=== PATIENT | male | born 1950 | race Caucasian/White ===

== ENCOUNTER 2016-12-02 09:17 | Emergency (ER) | payer MEDICARE, OTHER ==
[2016-12-02 09:20] VITALS: BP 140/96; PULSE 97; RESP 18; TEMP 98.6; O2SAT 99; BMI 22.2
--- NOTE | 2016-12-02 09:40 | ED PDOC ---
Upper Extremity Pain/Injury Time Seen by Provider: 12/02/16 09:25 Chief Complaint (Nursing): Upper Extremity Problem/Injury Chief Complaint (Provider): Right shoulder pain History Per: Patient History/Exam Limitations: no limitations Onset/Duration Of Symptoms: Days (1) Current Symptoms Are (Timing): Still Present Quality: "Pain" Severity: Severe Pain Scale Rating Of: 10 Exacerbating Factor(s): Movement Additional Complaint(s): 66 year old smoker male with no significant medical history presents to ED due to right shoulder pain. Patient states last night, fell asleep on couch and fell onto coffee table with injury to right shoulder. Patient states pain was tolerable last night, though this morning had difficulty moving right shoulder due to increased pain. Patient denies palpitations, chest pain, sob, headache, dizziness, abdominal pain, lightheadedness, or LOC at time of event. No bruising , lacerations/active bleeding, or numbness/tingling. No pops noted. PMD: Dr. Ratliff Past Medical History Reviewed: Historical Data, Nursing Documentation, Vital Signs Vital Signs: Last Vital Signs Temp 98.6 F 12/02/16 09:18 Pulse 97 H 12/02/16 09:18 Resp 18 12/02/16 09:18 BP 140/96 H 12/02/16 09:18 Pulse Ox 99 12/02/16 09:18 - Family History Family History: States: No Known Family Hx - Home Medications Home Medications: Ambulatory Orders Medication Instructions Recorded Naproxen [Naprosyn] 500 mg PO BID PRN #14 tablet 12/02/16 - Allergies Allergies/Adverse Reactions: Allergies Allergy/AdvReac Type Severity Reaction Status Date / Time No Known Allergies Allergy Verified 12/02/16 09:34 Review of Systems ROS Statement: Except As Marked, All Systems Reviewed And Found Negative Musculoskeletal: Positive for: Shoulder Pain (right) Physical Exam - Reviewed Nursing Documentation Reviewed: Yes Vital Signs Reviewed: Yes - Physical Exam Appears: Positive for: Well, Non-toxic, No Acute Distress Head Exam: Positive for: ATRAUMATIC, NORMAL INSPECTION, NORMOCEPHALIC Skin: Positive for: Normal Color, Warm, Dry Eye Exam: Positive for: Normal appearance, EOMI Neck: Positive for: Normal, Painless ROM, Supple Cardiovascular/Chest: Positive for: Regular Rate, Rhythm Respiratory: Positive for: Normal Breath Sounds Gastrointestinal/Abdominal: Positive for: Normal Exam, Bowel Sounds (present), Soft. Negative for: Tenderness Back: Positive for: Normal Inspection Extremity: Positive for: Other (right shoulder with limited range of motion due to pain. No obvious skin/bony abnormalities. No contusions/abrasions noted. Neurovascular intact. Pain limited to shoulder and no radiation.) Neurologic/Psych: Positive for: Alert, wash operator II-XII, Oriented - ECG O2 Sat by Pulse Oximetry: 99 Pulse Ox Interpretation: Normal - Progress ED Course And Treament: Time: 9:45 Initial impression: 66 year old male without medical history with right shoulder pain x 1 day after fall onto coffee table. No other symptoms at this time. Plan: * Ibuprofen 600mg PO * Right Shoulder xray * Right Clavicle xray * CXR * Reeval Time: 1015 Xray reviewed, will obtain CT w/o contrast of Right shoulder for further evaluation. Time: 1045 PROCEDURE: Right upper extremity CT scan without contrast. HISTORY: R shoulder pain s/p fall COMPARISON: December 02, 2016. Plain film radiographs right upper extremity. TECHNIQUE: 1.25 mm axial acquisition and display. Coronal and sagittal reconstructions. Radiation dosimetry DLP (mGy-cm) 260.14 FINDINGS: Glenohumeral degenerative changes, mild. Mild acromioclavicular degenerative change. No appreciable narrowing in the region of the supraspinatus muscle/tendon. Anterior osteophyte formation about the humeral head. No evidence of clavicular fracture, rib fracture, scapular fracture. Incidental finding(s): Incompletely visualize thus characterize scarring and bullous changes in the apices. IMPRESSION: Glenohumeral and acromioclavicular degenerative change, mild. No acute osseous pathology. Additional benign and/or incidental findings described above. Discussed all imaging studies with patient. Improved symptoms with ibuprofen. Will discharge patient home with follow up with Dr. Marina (Orthopedic) and PMD this week for further work up including possibly MRI. Patient verbalized understanding of discharge instructions. Disposition - Clinical Impression Clinical Impression: Shoulder injury, Rotator cuff injury - Patient ED Disposition Is Patient to be Admitted: No Counseled Patient/Family Regarding: Studies Performed, Diagnosis, Need For Followup, Rx Given, Smoking Cessation - Disposition Referrals: Cary Marina MD [Staff Provider] - Disposition: Routine/Home Disposition Time: 10:50 Condition: STABLE Additional Instructions: See orthopedist for further testing and treatment of your injured shoulder. Take naprosyn 500mg 2x daily for pain with food. Return to ER for any worse or new symptoms. Prescriptions: Naproxen [Naprosyn] 500 mg PO BID PRN #14 tablet PRN Reason: Pain, Moderate (4-7) Instructions: Rotator Cuff Injury (ED), Shoulder Pain (ED) Print Language: YORUBA
--- NOTE | 2016-12-02 10:09 | RAD ---
HISTORY: fall R shoulder pain COMPARISON: 01/29/2013. TECHNIQUE: Chest PA and lateral FINDINGS: LUNGS: No active pulmonary disease. PLEURA: No significant pleural effusion identified. No pneumothorax apparent. CARDIOVASCULAR: Normal. OSSEOUS STRUCTURES: No significant abnormalities. VISUALIZED UPPER ABDOMEN: Normal. OTHER FINDINGS: None. IMPRESSION: No active disease. This No significant interval change compared to the prior examination(s).
--- NOTE | 2016-12-02 10:48 | CT ---
PROCEDURE: Right upper extremity CT scan without contrast. HISTORY: R shoulder pain s/p fall COMPARISON: December 02, 2016. Plain film radiographs right upper extremity. TECHNIQUE: 1.25 mm axial acquisition and display. Coronal and sagittal reconstructions. Radiation dosimetry DLP (mGy-cm) 260.14 FINDINGS: Glenohumeral degenerative changes, mild. Mild acromioclavicular degenerative change. No appreciable narrowing in the region of the supraspinatus muscle/tendon. Anterior osteophyte formation about the humeral head. No evidence of clavicular fracture, rib fracture, scapular fracture. Incidental finding(s): Incompletely visualize thus characterize scarring and bullous changes in the apices. IMPRESSION: Glenohumeral and acromioclavicular degenerative change, mild. No acute osseous pathology. Additional benign and/or incidental findings described above.
--- NOTE | 2016-12-02 11:01 | RAD ---
PROCEDURE: Radiographs of the Right Shoulder HISTORY: fall COMPARISON: No priors FINDINGS: BONES: No acute displaced fracture. The distal clavicle and underlying ribs appear intact. JOINTS: No acute dislocation. Mild glenohumeral joint space narrowing. Mild acromioclavicular arthropathy. SOFT TISSUES: Soft tissues appear unremarkable. No evidence of radiopaque foreign body. IMPRESSION: No acute displaced fracture or dislocation evident. If symptoms persist or if there is continued clinical concern, x-ray follow-up in 7-10 days should be considered.
--- NOTE | 2016-12-02 11:02 | RAD ---
PROCEDURE: Radiographs of the right clavicle. HISTORY: R shoulder pain COMPARISON: Right shoulder radiograph performed the same day. FINDINGS: RIGHT CLAVICLE: No acute displaced fracture identified. JOINTS: Right acromioclavicular and glenohumeral joints demonstrate mild joint space narrowing, otherwise grossly unremarkable. SOFT TISSUES: Grossly unremarkable. OTHER FINDINGS: 3 mm sclerotic focus within the right anterior 6th rib, possibly bone island. IMPRESSION: No acute fracture identified.
== END 2016-12-02 11:05 | disposition home or self-care (01) ==
LOC: H.ER 09:17
DX: M75.121 Complete rotator cuff tear or rupture of right shoulder, not specified as traumatic (principal); W06.XXXA Fall from bed, initial encounter; Y92.008 Other place in unspecified non-institutional (private) residence as the place of occurrence of the external cause

== ENCOUNTER 2017-10-14 09:14 | Emergency (ER) | payer MEDICARE ==
[2017-10-14 09:20] VITALS: BMI 20.1
[2017-10-14 09:21] VITALS: O2SAT 100
[2017-10-14 09:36] VITALS: BP 112/65; PULSE 90; RESP 16; TEMP 97.5
--- NOTE | 2017-10-14 10:20 | ED PDOC ---
Lower Extremity Pain/Injury Time Seen by Provider: 10/14/17 09:28 Chief Complaint (Nursing): Lower Extremity Problem/Injury Chief Complaint (Provider): Left leg pain History Per: Patient History/Exam Limitations: no limitations Onset/Duration Of Symptoms: Days (x1) Current Symptoms Are (Timing): Still Present Additional Complaint(s): Alex Yin is a 67 year old male, with no significant past medical history, who was brought to the emergency department via EMS complaining of left leg and foot pain onset since last night. 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 He denies any trauma, swelling or other medical complaints. PMD: None provided. Past Medical History Reviewed: Historical Data, Nursing Documentation, Vital Signs Vital Signs: Last Vital Signs Temp 97.5 F L 10/14/17 09:35 Pulse 90 10/14/17 09:35 Resp 16 10/14/17 09:35 BP 112/65 10/14/17 09:35 Pulse Ox 100 10/14/17 09:35 - Medical History PMH: No Chronic Diseases - Surgical History Surgical History: No Surg Hx - Family History Family History: States: Unknown Family Hx - Social History Current smoker - smoking cessation education provided: Yes (Heavy smoker >10 cigarettes daily) Alcohol: > 2 Drinks/Day Drugs: Denies - Home Medications Home Medications: Ambulatory Orders Medication Instructions Recorded Naproxen [Naprosyn] 500 mg PO BID PRN #14 tablet 12/02/16 - Allergies Allergies/Adverse Reactions: Allergies Allergy/AdvReac Type Severity Reaction Status Date / Time No Known Allergies Allergy Verified 12/02/16 09:34 Review of Systems ROS Statement: Except As Marked, All Systems Reviewed And Found Negative Musculoskeletal: Positive for: Leg Pain (left), Foot Pain (left) Physical Exam - Reviewed Nursing Documentation Reviewed: Yes Vital Signs Reviewed: Yes - Physical Exam Appears: Positive for: Well, Non-toxic, No Acute Distress Head Exam: Positive for: ATRAUMATIC, NORMAL INSPECTION, NORMOCEPHALIC Skin: Positive for: Normal Color, Warm, Dry Eye Exam: Positive for: Normal appearance, EOMI, PERRL Neck: Positive for: Painless ROM, Supple Cardiovascular/Chest: Positive for: Regular Rate, Rhythm. Negative for: Murmur Respiratory: Positive for: Normal Breath Sounds. Negative for: Respiratory Distress Extremity: Positive for: Normal ROM (lower extremities. ). Negative for: Tenderness, Deformity, Swelling Neurologic/Psych: Positive for: Alert, Oriented (x3). Negative for: Motor/ Sensory Deficits - Laboratory Results Result Diagrams: 10/14/17 09:08 10/14/17 09:08 - ECG O2 Sat by Pulse Oximetry: 100 (RA) Pulse Ox Interpretation: Normal Medical Decision Making Medical Decision Making: Initial Impression: Initial Plan: --Head w/o contrast [CT] --EKG --Alcohol serum --CMP --Drug screen, urine --Urine dipstick --CBC w/ differential --PTT --PT --Ankle left 3 views routine [RAD] --Foot left 3 views routine [RAD] --Tibia Fibula Left [RAD] --Urinalysis --Duplex Lower Extrm Vein Left [US] --Reevaluation -Contrary to triage patient does not feel depressed. He denies any suicidal or homicidal ideation and doesn't want to speak to crisis. 10:20 Tibia Fibula X-Ray FINDINGS: BONES: No fracture or destructive lesion. JOINT SPACES: Unremarkable. OTHER FINDINGS: Quadriceps insertional enthesophyte. Anterior tibial tuberosity cortical prominence -within normal variation. Atherosclerotic vascular calcifications present. IMPRESSION: No fracture or lytic lesion. Quadriceps insertional enthesophyte 10:24 Foot X-Ray FINDINGS: BONES: No fracture. Os peroneum JOINTS: First interphalangeal joint osteoarthrosis SOFT TISSUES: There are superficial innumerable densities present -some appear extrinsic to the soft tissue -overlying bandaging/cause. Soft tissue concomitant calcifications and/or ointment related minute/diffuse densities -not excluded - findings noted over the heel, plantar forefoot and dorsal midfoot OTHER FINDINGS: None. IMPRESSION: No fracture or lytic lesion. . . First interphalangeal joint osteoarthrosis Probable overlying bandaging/ gauze -correlate clinically. Findings referenced above 10:25 Ankle X-Ray FINDINGS: BONES: No fracture. Os peroneum JOINTS: Normal. No osteoarthritis. Ankle mortise maintained. Talar dome intact SOFT TISSUES: Probable overlying gauze OTHER FINDINGS: None. IMPRESSION: No fracture or dislocation. Incidental os peroneum Overlying gauze bandaging inferred 11:[address] FINDINGS: HEMORRHAGE: No intracranial hemorrhage. BRAIN: Good corticomedullary differentiation is seen. Diffuse expansion of the ventriculosulcal and cisternal spaces is appreciated with white matter lucency compatible with diffuse cerebral atrophy and chronic microangiopathy. No suspicious extra-axial fluid collection is identified and the midline brain anatomy appears grossly nonfocal as imaged. There is no mass effect throughout. VENTRICLES: Unremarkable. No hydrocephalus. CALVARIUM: Unremarkable. PARANASAL SINUSES: Unremarkable as visualized. No significant inflammatory changes. MASTOID AIR CELLS: Unremarkable as visualized. No inflammatory changes. OTHER FINDINGS: None. IMPRESSION: Mild age related neuro degenerative changes are identified without definite acute intracranial findings by standard CT criteria. CT or MRI are available as clinically warranted. 12:07 Extremity US FINDINGS: 2-D, color and duplex Doppler analysis of the lower extremity venous circulation using routine protocol. Evaluation of the left common and superficial femoral and popliteal veins reveals the following features consistently: Venous compressibility: Normal. Flow and augmentation patterns: Normal. Normal spontaneous phasic blood flow. Lee cyst: None. The posterior tibial vein is patent. IMPRESSION: No sonographic evidence for DVT in left lower extremity. Scribe Attestation: Documented by Maximiliano Madrid, acting as a scribe for Munira Kunz MD Provider Scribe Attestation: All medical record entries made by the Scribe were at my direction and personally dictated by me. I have reviewed the chart and agree that the record accurately reflects my personal performance of the history, physical exam, medical decision making, and the department course for this patient. I have also personally directed, reviewed, and agree with the discharge instructions and disposition. Disposition - Clinical Impression Clinical Impression: Leg pain, Alcohol intoxication - Disposition Referrals: Gary Ratliff MD [Staff Provider] - Disposition: Routine/Home Disposition Time: 13:16 Condition: STABLE Instructions: Muscle and Bone Pain (DC), Alcohol Abuse and Alcoholism (DC) Forms: [employer] (Lao) Print Language: BENGALI
--- NOTE | 2017-10-14 10:21 | RAD ---
PROCEDURE: Radiographs of the left tibia and fibula. HISTORY: Pain COMPARISON: None available. TECHNIQUE: Frontal and lateral views obtained. FINDINGS: BONES: No fracture or destructive lesion. JOINT SPACES: Unremarkable. OTHER FINDINGS: Quadriceps insertional enthesophyte. Anterior tibial tuberosity cortical prominence -within normal variation. Atherosclerotic vascular calcifications present. IMPRESSION: No fracture or lytic lesion. Quadriceps insertional enthesophyte
--- NOTE | 2017-10-14 10:25 | RAD ---
PROCEDURE: Left Foot Radiographs. HISTORY: Pain COMPARISON: None. FINDINGS: BONES: No fracture. Os peroneum JOINTS: First interphalangeal joint osteoarthrosis SOFT TISSUES: There are superficial innumerable densities present -some appear extrinsic to the soft tissue -overlying bandaging/cause. Soft tissue concomitant calcifications and/or ointment related minute/diffuse densities -not excluded -findings noted over the heel, plantar forefoot and dorsal midfoot OTHER FINDINGS: None. IMPRESSION: No fracture or lytic lesion. . . First interphalangeal joint osteoarthrosis Probable overlying bandaging/ gauze -correlate clinically. Findings referenced above
--- NOTE | 2017-10-14 10:27 | RAD ---
PROCEDURE: Left Ankle Radiographs. HISTORY: Pain COMPARISON: None FINDINGS: BONES: No fracture. Os peroneum JOINTS: Normal. No osteoarthritis. Ankle mortise maintained. Talar dome intact SOFT TISSUES: Probable overlying gauze OTHER FINDINGS: None. IMPRESSION: No fracture or dislocation. Incidental os peroneum Overlying gauze bandaging inferred
[2017-10-14 10:29] LABS: ALBUMIN 3.8 g/dL (3.5-5.0); ALT/SGPT 47 U/L (21-72); AST/SGOT 42 U/L (17-59); BLOOD UREA NITROGEN 14 mg/dl (9-20); CALCIUM 9.3 mg/dL (8.4-10.2); GFR AFRICAN-AMERICAN > 60; GFR NON-AFRICAN AMERICAN > 60
[2017-10-14 10:36] LABS: BASO # 0.1 K/uL (0.0-0.2); BASO % 0.8 % (0.0-2.0); EOS % 0.3 % (0.0-4.0); HEMOGLOBIN 15.5 g/dL (12.0-18.0); LYMPH # 4.7 K/uL (1.0-4.3); LYMPH % 32.7 % (20.0-40.0); MEAN CELL VOLUME 98.3 fl (80.0-94.0); MEAN CORPUSCULAR HEMOGLOBIN 32.3 pg (27.0-31.0); MEAN CORPUSCULAR HGB CONC 32.8 g/dL (33.0-37.0); MONO # 1.6 K/uL (0.0-0.8); MONO % 11.1 % (0.0-10.0); NEUT % 55.1 % (50.0-75.0); NRBC % 0.1 % (0.0-0.0); RBC 4.81 Mil/uL (4.40-5.90); RED CELL DISTRIBUTION WIDTH 13.8 % (11.5-14.5); WHITE BLOOD COUNT 14.5 K/uL (4.8-10.8)
[2017-10-14 10:48] LABS: BARBITURATES, UR NEGATIVE (NEGATIVE); BENZODIAZEPINES, UR NEGATIVE (NEGATIVE); OPIATES, UR NEGATIVE (NEGATIVE); PHENCYCLIDINE, UR NEGATIVE (NEGATIVE)
[2017-10-14 11:03] LABS: INR 0.9 (0.9-1.2); PARTIAL THROMBOPLASTIN TIME 18.5 Seconds (25.6-37.1); PROTHROMBIN TIME 10.3 Seconds (9.8-13.1)
[2017-10-14 11:12] LABS: SQUAMOUS EPITHIAL < 1 /hpf (0-5); URINE BILIRUBIN NEGATIVE (NEGATIVE); URINE BLOOD NEGATIVE (NEGATIVE); URINE CLARITY CLEAR (Clear); URINE COLOR YELLOW (YELLOW); URINE GLUCOSE (UA) NEG (Normal); URINE LEUKOCYTE ESTERASE NEG Leu/uL (Negative); URINE PROTEIN NEGATIVE (NEGATIVE); URINE UROBILINOGEN 0.2-1.0 mg/dL (0.2-1.0)
--- NOTE | 2017-10-14 11:21 | CT ---
PROCEDURE: CT HEAD WITHOUT CONTRAST. HISTORY: Vertigo COMPARISON: None available. TECHNIQUE: Axial computed tomography images were obtained through the head/brain without intravenous contrast. Radiation dose: Total exam DLP = 893.77 mGy-cm. This CT exam was performed using one or more of the following dose reduction techniques: Automated exposure control, adjustment of the mA and/or kV according to patient size, and/or use of iterative reconstruction technique. FINDINGS: HEMORRHAGE: No intracranial hemorrhage. BRAIN: Good corticomedullary differentiation is seen. Diffuse expansion of the ventriculosulcal and cisternal spaces is appreciated with white matter lucency compatible with diffuse cerebral atrophy and chronic microangiopathy. No suspicious extra-axial fluid collection is identified and the midline brain anatomy appears grossly nonfocal as imaged. There is no mass effect throughout. VENTRICLES: Unremarkable. No hydrocephalus. CALVARIUM: Unremarkable. PARANASAL SINUSES: Unremarkable as visualized. No significant inflammatory changes. MASTOID AIR CELLS: Unremarkable as visualized. No inflammatory changes. OTHER FINDINGS: None. IMPRESSION: Mild age related neuro degenerative changes are identified without definite acute intracranial findings by standard CT criteria. CT or MRI are available as clinically warranted.
--- NOTE | 2017-10-14 12:09 | US ---
HISTORY: LLE pain . PRIORS: None. FINDINGS: 2-D, color and duplex Doppler analysis of the lower extremity venous circulation using routine protocol. Evaluation of the left common and superficial femoral and popliteal veins reveals the following features consistently: Venous compressibility: Normal. Flow and augmentation patterns: Normal. Normal spontaneous phasic blood flow. Lee cyst: None. The posterior tibial vein is patent. IMPRESSION: No sonographic evidence for DVT in left lower extremity.
--- NOTE | 2017-10-15 10:05 | CARD ---
APPROVED REPORT EKG Measurement Heart [id number] <Conclusion> Normal sinus rhythm with sinus arrhythmia Normal ECG
== END 2017-10-14 13:28 | disposition home or self-care (01) ==
LOC: H.ER 09:14
DX: F10.129 Alcohol abuse with intoxication, unspecified (principal); F17.210 Nicotine dependence, cigarettes, uncomplicated; Y90.6 Blood alcohol level of 120-199 mg/100 ml
CPT/HCPCS: 70450; 73590; 73610; 73630; 80053; 81003; 85025; 85610; 85730; 93005; 93971; 99284; G0480